=== PATIENT | male | born 1990 | race Two or more races ===

== ENCOUNTER 2022-05-05 09:09 | Outpatient (CLI) | payer OTHER | END 2022-05-05 09:15 | disposition home or self-care (01) | LOC: PPH VACUNA 09:09 | PROVIDERS: ATTEND Emergency Medicine Pediatric Emergency Medicine | DX: Z23 Encounter for immunization (principal) | CPT/HCPCS: 90686; G0008 ==

== ENCOUNTER 2023-05-05 | Outpatient (CLI) | payer OTHER | END 2023-05-05 00:15 | disposition home or self-care (01) | LOC: PPH VACUNA | PROVIDERS: ATTEND Emergency Medicine Pediatric Emergency Medicine | DX: Z23 Encounter for immunization (principal) ==

== ENCOUNTER 2023-07-05 15:13 | Emergency (ER) | payer OTHER ==
[~2023-07-05] VITALS: Ht 223.5 cm; Wt 74.8 kg
== END 2023-07-05 18:17 | disposition home or self-care (01) ==
LOC: ER 15:13
DX: S20.212A Contusion of left front wall of thorax, initial encounter (principal); S00.93XA Contusion of unspecified part of head, initial encounter; W17.89XA Other fall from one level to another, initial encounter; Y93.H9 Activity, other involving exterior property and land maintenance, building and construction; Y92.230 Patient room in hospital as the place of occurrence of the external cause; Y99.9 Unspecified external cause status; Z91.040 Latex allergy status; E11.9 Type 2 diabetes mellitus without complications; Z79.4 Long term (current) use of insulin